=== PATIENT | female | born 1985 ===

== ENCOUNTER → 2019-05-06 11:48 | Day surgery (SDC) | payer OTHER ==
[~2019-05-06 11:48] MED LIST: Buffered Lidocaine 1% SYRIN* 1 ML/SYRINGE INTRADERM ONE; KETAMINE HCL* 50 MG/ML 10 ML VIAL ONE; Lactated Ringers 1000 ML Bag* 1,000 ML IV SCH; Lidocaine 2% PF * 5 ML VIAL ONE; Midazolam* 1 MG/ML 10 ML VIAL (10 MG) ONE; Ondansetron INJ* 2 MG/ML VIAL ONE; Propofol* 10 MG/ML 20 ML BTL ONE; fentaNYL* 50 MCG/ML 2 ML VIAL (100 MCG VIAL) ONE
[2019-05-06 15:34] VITALS: BP 120/92
--- NOTE | 2019-05-06 21:22 | PRO ---
CC: Dr. Toni Lopez * ATE OF PROCEDURE: 05/06/19 - [facility] PHYSICIAN: Dr. Toni Lopez. INDICATION FOR PROCEDURE: Abdominal pain, dysphagia, nausea, vomiting. PROCEDURE PERFORMED: Complete esophagogastroduodenoscopy with biopsies. MEDICATIONS GIVEN: Please see anesthesia record. DESCRIPTION OF PROCEDURE: After the EGD procedure including the risks, benefits , and alternatives with the risks not limited to perforation, surgery, missed lesions, and/or were explained to the patient, written informed consent was obtained, IV medication was given by the anesthesia service, and a bite- block was placed between the teeth. The adult Olympus gastroscope was then inserted into the patient's oropharynx into the tubular esophagus. The tubular esophagus had mild GE junction variability less than 1 cm. This was biopsied. There was also a small plaque-like lesion around 35 cm, it is possible papilloma. This was biopsied. The scope was then advanced to the lower esophageal sphincter into the stomach. Direct views were normal. Biopsy was taken for CLOtesting. On retroflexion, no significant hiatal hernia was appreciated. The scope was advanced to the widely patient pylorus into duodenal bulb, C-loop, distal duodenum. These were normal in appearance. Biopsies were taken to rule out celiac disease. The scope was then removed from the patient. She tolerated the procedure well. She returned to the recovery room in stable condition. After the procedure, I did empirically dilate with a 54-Barbadian Mathias. IMPRESSION: 1. Complete esophagogastroduodenoscopy with biopsies. 2. Mild GE junction variability, biopsied. 3. Plaque at 35 cm, biopsied. 4. Otherwise unremarkable EGD, biopsied as above. 5. Empiric dilatation with 54-Barb[place] Mathias. RECOMMENDATIONS: She will be on 20 mg of omeprazole. We will recommend increasing to a stronger PPI to see if she gets any relief from that. In addition, she does have varying bowel habits and I suspect maybe some of this cramping and abdominal pain could be from constipation alternating with diarrhea. We recommend fiber therapy. She can follow up in the office with Bharati Elaine for further management. In addition, she is going to follow up with her [facility] [employer] [facility] as there is a potential for endometriosis causing some of her symptomatology. [id number]/[facility] #: [id number] [facility]
== END | disposition home or self-care (01) ==
LOC: OR 11:48
PROVIDERS: ATTEND Internal Medicine Gastroenterology
DX: R13.19 Other dysphagia (principal); R10.9 Unspecified abdominal pain; R11.2 Nausea with vomiting, unspecified; K22.2 Esophageal obstruction; I10 Essential (primary) hypertension; K21.9 Gastro-esophageal reflux disease without esophagitis; Z72.0 Tobacco use; F41.9 Anxiety disorder, unspecified
CPT/HCPCS: 81025; 87077; 88305; J2250; J2405; J2704; J3010

== ENCOUNTER 2019-07-18 20:36 | Emergency (ER) | payer OTHER ==
--- OUTSIDE RECORDS SUMMARY | 2019-07-18 21:04 | XMS REPORT | Continuity of Care Document ---
:1985 External Reference #:[id number] Author Name Lev Arroyo DO Address [address] [place] [id number] Care Team Providers Name Role Phone Cathleen Gallegos PA Care Team Information Short Order Cook [phone] Problems Active Problems Provider Date Gastroesophageal reflux disease Bharati Elaine PA-C Onset: 02/14/2019 Melena Bharati Elaine PA-C Onset: 02/14/2019 Generalized abdominal pain Bharati Elaine PA-C Onset: 02/14/2019 Early satiety Bharati Elaine PA-C Onset: 02/14/2019 Hematemesis Bharati Elaine PA-C Onset: 02/14/2019 Nausea and vomiting Bharati Elaine PA-C Onset: 02/14/2019 Dysphagia Bharati Elaine PA-C Onset: 02/14/2019 Social History Type Date Description Comments Sex Unknown Tobacco Use Start: Unknown Light tobacco smoker (10 or fewer cigarettes/day) Recreational Drug Use Regularly uses Marijuana several times per week Smoking Status Reviewed: 02/14/19 Light tobacco smoker (10 or fewer cigarettes/day) Allergies, Adverse Reactions, Alerts Description No Known Drug Allergies Medications Active Medications SIG Qnty Indications Ordering Date Provider Omeprazole 1 tablet by 30caps Lev Arroyo DO 05/24/[address] mouth daily in Am Furosemide Sancho Allen, 20mg Tablets Cyclobenzaprine HCL Take 1 Tablet Unknown 5mg Tablets By Mouth Twice Daily as Needed For 14 Days Prochlorperazine Maleate Take 1 Tablet Unknown 5mg By Mouth Three Tablets Times Daily For 10 Days Alprazolam Unknown 2mg Tablets Heaven Singh, 0.15-0.03&0.01mg MD Tablets Atomoxetine HCL Unknown 40mg Capsules Divalproex Sodium ER Unknown 500mg Tablets ER 24HR Latuda Take 1 Tablet Unknown 20mg Tablets By Mouth Once Daily Quetiapine Fumarate Unknown 50mg Tablets Hydrocodone-Acetaminophen Cathleen Gallegos PA 5-325mg Tablets Immunizations Description No Information Available Vital Signs Date Vital Result Comment 02/14/2019 11:46am Height 66 inches 5'6" Weight 167.00 lb BP Systolic 117 mmHg BP Diastolic 83 mmHg Heart Rate 112 /min BMI (Body Mass Index) 27.0 kg/m2 Results Test Acquired Date Facility Test Result H/L Range Note Laboratory test 05/06/2019 [facility] [facility] [place]ULT 1 finding Pathology Order BELOW Fluid Lipid 01/18/2019 [facility] Fluid <pending> Profile Cholesterol Laboratory test 01/18/2019 [facility] TSH Thyroid Stim <pending> finding Hormone(!) Hemoglobin A1c 01/18/2019 [facility] Hemoglobin A1c <pending> (!) Lipid Panel(!) 01/18/2019 [facility] Cholesterol <pending> Total Mass/Vol(!) HDL Cholesterol Mol/Vol <pending> 30-85 Triglycerides Ser/Plas(!) <pending> LDL Cholesterol Mass/Vol(!) <pending> Laboratory test 01/18/2019 [facility] TSH Thyroid Stim <pending> finding Hormone(!) CBC W/Auto 01/18/2019 [facility] White Blood Count <pending> Differential(!) Ser Auto CNT RBC Red Blood Count <pending> Hemoglobin Blood <pending> Hematocrit <pending> MCV (Corpuscular Volume) <pending> MCH (Corpuscular Hemoglobin) <pending> MCHC (Corpuscular Hemog Conc) <pending> RDW <pending> Platelet Count Blood Auto CNT <pending> MPV <pending> Lymph% <pending> [place]laize% <pending> Neutrophil % <pending> Absolute Lymphocytes <pending> Absolute Monocytes <pending> Absolute Neutrophils <pending> CMP(!) 01/18/2019 [facility] Sodium(!) <pending> Potassium(!) <pending> Chloride Serum/Plasma(!) <pending> Carbon Dioxide Ser/Plasm(!) <pending> BUN - Urea Nitrogen(!) <pending> Calcium Ser/Plasma Mass/Vol(!) <pending> Creatinine Serum Mass/Vol(!) <pending> Glucose Serum(!) <pending> BUN/Creatinine Ratio(!) <pending> Albumin Serum/Plasma(!) <pending> Alkaline Phosphatase(!) <pending> Bilirubin Total Mass/Vol(!) <pending> Ast - Sgot <pending> Alt - SGPT <pending> Protein Total <pending> 1 SEE RESULT BELOW Name: KRISTYN STODDARD : [address]: Lev Arroyo DO Acct: [id number] Unit: [id number] AGE: 34 Location: OR Re05/06/19 SEX: F Status: REG [facility] SPEC: [id number] KOBY: 05/06/19-[address] [facility] [address]: Lev Arroyo DO REQ: [id number] RECD: 05/06/19 STATUS: DENAE HOPPER DR: Toni Lopez DO _ ORDERED: LEVEL 4/4 FINAL DIAGNOSIS 1. Duodenum, biopsy: -- Benign small intestinal mucosa with no significant pathologic abnormalities. -- No evidence of villous blunting or increased intraepithelial lymphocytes. 2. Esophagus, distal, biopsy: -- Benign squamous and columnar-type mucosa with chronic inflammation. -- Intestinal metaplasia is absent. -- Dysplasia is absent. 3. Esophagus, at 35 cm, biopsy: -- Benign squamous mucosa with mild erosive changes. -- No columnar component present for evaluation. -- No evidence of eosinophilic esophagitis. 4. Esophagus, mid, biopsy: -- Benign squamous mucosa with mild erosive changes. -- No evidence of eosinophilic esophagitis. CLINICAL HISTORY Dysphagia CONTINUED ON NEXT PAGE DEPARTMENT OF PATHOLOGY, [address] [place] [address] Richie Richard M.D. Director [facility] # [id number] PRE-OPERATIVE DIAGNOSIS 1) Rule out celiac POST-OPERATIVE DIAGNOSIS EGD: esophagus - plaque at gastroesophageal junction variable biopsy; gastric - normal; biopsy and JEEVAN test; duodenum - normal; biopsy GROSS DESCRIPTION 1. The specimen is received in formalin labeled, Biopsy Duodenum, and consists of two saldivar-pink irregular soft tissue fragments averaging 0.4 x 0.3 x 0.1 cm which are submitted entirely in one cassette. 2. The specimen is received in formalin labeled, Biopsy Distal Esophagus, and consists of a 0.4 x 0.3 x 0.1 cm white-pink irregular soft tissue fragment which is submitted entirely in one cassette. 3. The specimen is received in formalin labeled, Biopsy Plaque at 35 cm, and consists of two white-pink irregular soft tissue fragments averaging 0.4 by up to 0.3 x 0.2 cm which are submitted entirely in one cassette. 4. The specimen is received in formalin labeled, Biopsy Mid Esophagus, and consists of two white-pink irregular soft tissue fragments measuring 0.2 x 0.2 x 0.1 cm and 0.3 x 0.2 x 0.1 cm which are submitted entirely in one cassette. Signed by and Reported on: Andressa Rollins MD 05/09/19 1447 END OF REPORT DEPARTMENT OF PATHOLOGY, [address] [place] [address] Richie Richard M.D. Director [facility] # [id number] Procedures Description No Information Available Medical Devices Description No Information Available Encounters Type Date Location Provider Dx Diagnosis Office Visit 02/14/2019 Gastroenterology Bharati Justin R13.10 Dysphagia, 10:[facility], unspecified PA-C K92.0 Hematemesis R68.81 Early satiety R10.84 Generalized abdominal pain K92.1 Melena K21.9 Gastro-esophageal reflux disease without esophagitis Assessments Date Code Description Provider 02/14/2019 R13.10 Dysphagia, unspecified Bharati Elaine, PA-C 02/14/2019 K92.0 Hematemesis Bharati Elaine, PA-C 02/14/2019 R68.81 Early satiety Bharati Elaine, PA-C 02/14/2019 R10.84 Generalized abdominal pain Bharati Elaine, PA-C 02/14/2019 K92.1 Melena Bharati Elaine, PA-C 02/14/2019 K21.9 Gastro-esophageal reflux disease without Bharati Gandhiom, PA-C esophagitis Plan of Treatment No Information Available Functional Status Description No Information Available Mental Status Description No Information Available Referrals Description No Information Available
[2019-07-18 21:22] LABS: ABS Eosinophils 0.5 10^3/ul (0-0.6); ABS Lymphocytes 1.8 10^3/ul (1.0-4.8); ABS Monocytes 0.8 10^3/ul (0-0.8); Eosinophil % 5.7 %; Hematocrit 36 % (35-47); Hemoglobin 12.3 g/dL (12.0-16.0); Lymphocyte % 22.3 %; Mean Corpuscular HGB Conc 35 g/dL (31-36); Mean Corpuscular Hemoglobin 32 pg (27-31); Mean Corpuscular Volume 91 fL (80-97); Mean Platelet Volume 7.9 fL (7.4-10.4); Platelet Count 270 10^3/uL (150-450); Red Cell Distribution Width 13 % (10-15); White Blood Count 8.1 10^3/uL (3.5-10.8)
[2019-07-18 21:36] LABS: Influenza A Molecular NEGATIVE (Negative); Influenza B Molecular NEGATIVE (Negative)
[2019-07-18 21:37] LABS: INR 0.92 (0.82-1.09)
[2019-07-18 21:38] LABS: Albumin 3.9 g/dL (3.2-5.2); Albumin/Globulin Ratio 1.4 (1-3); BUN/Creatinine Ratio 16.9 (8-20); Calcium 8.6 mg/dL (8.6-10.3); EGFR African American 112.7 (>60); EGFR Non-African American 93.1 (>60); Globulin 2.8 g/dL (2-4); Potassium 3.8 mmol/L (3.5-5.0); Total Bilirubin 0.3 mg/dL (0.2-1.0); Total Protein 6.7 g/dL (6.4-8.9)
[2019-07-19] MEDS ORDERED: Diazepam INJ CARPUJECT* 5 MG/ML IV ONE (00:59)
--- NOTE | 2019-07-19 01:01 | ED ---
HPI Chest Pain - HPI Summary HPI Summary: The patient is a 34 y/o female presenting to [facility] with a chief complaint of palpitations, chest pain, and shortness of breath over the last 4-5 days. She reports that she has a history of similar symptoms with unknown etiology but possibility of endometriosis following an endoscopy with a plan for laparoscopy for confirmation. She states chronic poor circulation, which she relates to the intermittent episodes of extremity edema she has been experiencing and has been persistent over the last week. With the edema, she has noticed palpitations, chest pain, and shortness of breath described as "being uncomfortable" and "not feeling right." She endorses localized pain in the feet and general myalgias and arthralgias described as "beat up like a punching bag." She additionally c/ o increased anxiety recently. Symptoms rated 10/10 in severity. She hasn't seen a sawyer cork slabs for her symptoms, but she has seen GI and her PCP. She is currently on Lasix, and she notes her right lower extremity has been worse with swelling than the left chronically. No autoimmune FHx. Her mother has a history of [place] and aortic stents while smoking 1 ppd. Patient is a current smoker, occasional EtOH, no substance use. No concern for . PMHx: HTN. Medications reviewed. Allergies noted. - History of Current Complaint Chief Complaint: EDChestPainROMI Time Seen by Provider: 07/19/19 00:42 Hx Obtained From: Patient Onset/Duration: Started Days Ago, Still Present Timing: Intermittent Initial Severity: Moderate Current Severity: Severe Pain Intensity: 10 Pain Scale Used: 0-10 Numeric Chest Pain Location: Diffuse Chest Pain Radiates: No Character: Dull/Aching Aggravating Factor(s): Nothing Alleviating Factor(s): Nothing Associated Signs and Symptoms: Positive: Chest Pain, Anxiety, Shortness of Breath, Palpitations, Edema - Allergy/Home Medications Allergies/Adverse Reactions: Allergies Allergy/AdvReac Type Severity Reaction Status Date / Time No Known Allergies Allergy Verified 07/18/19 20:56 PMH/Surg Hx/FS Hx/Imm Hx Endocrine/Hematology History: Denies: Hx Diabetes Cardiovascular History: Reports: Hx Hypertension - STARTING ON METOPOLOL Respiratory History: Denies: Hx Asthma GI History: Reports: Hx Gastroesophageal Reflux Disease Musculoskeletal History: Reports: Other Musculoskeletal History - XRAY OF LOWER BACK Sensory History: Reports: Hx Contacts or Glasses - WILL WEAR GLASSES Denies: Hx Hearing Aid Opthamlomology History: Reports: Hx Contacts or Glasses - WILL WEAR GLASSES Neurological History: Reports: Hx Headaches Psychiatric History: Reports: Hx Anxiety, Hx Depression - Surgical History Surgical History: Yes Surgery Procedure, Year, and Place: ENDOSCOPY 2019 Hx Anesthesia Reactions: No Infectious Disease History: No Infectious Disease History: Denies: Traveled Outside the [place] in Last 30 Days - Family History Known Family History: Positive: Cardiac Disease - mother [place] age 45 - Social History Alcohol Use: Occasionally Hx Substance Use: Yes Substance Use Type: Reports: None Substance Use Comment - Amount & Last Used: THC NOT USED IN A WHILE Hx Tobacco Use: Yes Smoking Status (MU): Light Every Day Tobacco Smoker Amount Used/How Often: 1/2 PPD Have You Smoked in the Last Year: No Review of Systems Positive: Palpitations, Chest Pain Positive: Shortness Of Breath Positive: Arthralgia, Myalgia, Edema - BLE, Other - localized bilateral foot pain Positive: Anxious All Other Systems Reviewed And Are Negative: Yes Physical Exam - Summary Physical Exam Summary: Constitutional: Well-developed, Well-nourished, Alert. (-) Distressed Skin: Warm, Dry HENT: Normocephalic; Atraumatic Eyes: Conjunctiva normal Neck: Musculoskeletal ROM normal neck. (-) JVD, (-) Stridor, (-) Tracheal deviation Cardio: Rhythm regular, tachycardic rate, Heart sounds normal; Intact distal pulses; The pedal pulses are 2+ and symmetric. Radial pulses are 2+ and symmetric. Pulmonary/Chest wall: Effort normal. (-) Respiratory distress, (+) Trace wheezing at end of expiration, (-) Rales, (-) Rhonchi Abd: Soft, (-) tenderness, (-) Distension, (-) Guarding, (-) Rebound Musculoskeletal: (+) Trace swelling of bilateral lower extremities at worst, more in right, (+) Mild right calf tenderness Neuro: Alert, Oriented x3 Psych: Mood and affect Normal Triage Information Reviewed: Yes Vital Signs On Initial Exam: Initial Vitals Temp Pulse Resp BP Pulse Ox 97.9 F 108 18 132/75 97 07/18/19 20:55 07/18/19 20:55 07/18/19 20:55 07/18/19 20:55 07/18/19 20:55 Vital Signs Reviewed: Yes Procedures - Sedation Patient Received Moderate/Deep Sedation with Procedure: No Diagnostics - Vital Signs Vital Signs Temp Pulse Resp BP Pulse Ox 07/19/19 00:47 98.4 F 120 20 145/91 97 07/18/19 23:11 98.4 F 118 20 147/96 98 07/18/19 20:55 97.9 F 108 18 132/75 97 - Laboratory Lab Results: Lab Results 07/18/19 07/18/19 07/18/19 Range/Units 20:52 20:52 20:52 WBC 8.1 (3.5-10.8) 10^3/uL RBC 3.90 (3.70-4.87) 10^6 /uL Hgb 12.3 (12.0-16.0) g/dL Hct 36 (35-47) % MCV 91 (80-97) fL MCH 32 H (27-31) pg MCHC 35 (31-36) g/dL RDW 13 (10-15) % Plt Count 270 (150-450) 10^3/uL MPV 7.9 (7.4-10.4) fL Neut % (Auto) 61.4 % Lymph % (Auto) 22.3 % Buchanan % (Auto) 10.2 % Eos % (Auto) 5.7 % Baso % (Auto) 0.4 % Absolute Neuts (auto) 5.0 (1.5-7.7) 10^3/ul Absolute Lymphs (auto) 1.8 (1.0-4.8) 10^3/ul Absolute Monos (auto) 0.8 (0-0.8) 10^3/ul Absolute Eos (auto) 0.5 (0-0.6) 10^3/ul Absolute Basos (auto) 0.0 (0-0.2) 10^3/ul Absolute Nucleated RBC 0.0 10^3/ul Nucleated RBC % 0.0 INR (Anticoag Therapy) 0.92 (0.82-1.09) Sodium 134 L (135-145) mmol/L Potassium 3.8 (3.5-5.0) mmol/L Chloride 103 (101-111) mmol/L Carbon Dioxide 27 (22-32) mmol/L Anion Gap 4 (2-11) mmol/L BUN 12 (6-24) mg/dL Creatinine 0.71 (0.51-0.95) mg/dL Est GFR ( Amer) 112.7 (>60) Est GFR (Non-Af Amer) 93.1 (>60) BUN/Creatinine Ratio 16.9 (8-20) Glucose 82 (70-100) mg/dL Calcium 8.6 (8.6-10.3) mg/dL Total Bilirubin 0.30 (0.2-1.0) mg/dL AST 14 (13-39) U/L ALT 9 (7-52) U/L Alkaline Phosphatase 40 (34-104) U/L Troponin I 0.00 (<0.03) ng/mL Total Protein 6.7 (6.4-8.9) g/dL Albumin 3.9 (3.2-5.2) g/dL Globulin 2.8 (2-4) g/dL Albumin/Globulin Ratio 1.4 (1-3) Influenza A (Rapid) (Negative) Influenza B (Rapid) (Negative) 07/18/19 Range/Units 21:01 WBC (3.5-10.8) 10^3/uL RBC (3.70-4.87) 10^6 /uL Hgb (12.0-16.0) g/dL Hct (35-47) % MCV (80-97) fL MCH (27-31) pg MCHC (31-36) g/dL RDW (10-15) % Plt Count (150-450) 10^3/uL MPV (7.4-10.4) fL Neut % (Auto) % Lymph % (Auto) % Buchanan % (Auto) % Eos % (Auto) % Baso % (Auto) % Absolute Neuts (auto) (1.5-7.7) 10^3/ul Absolute Lymphs (auto) (1.0-4.8) 10^3/ul Absolute Monos (auto) (0-0.8) 10^3/ul Absolute Eos (auto) (0-0.6) 10^3/ul Absolute Basos (auto) (0-0.2) 10^3/ul Absolute Nucleated RBC 10^3/ul Nucleated RBC % INR (Anticoag Therapy) (0.82-1.09) Sodium (135-145) mmol/L Potassium (3.5-5.0) mmol/L Chloride (101-111) mmol/L Carbon Dioxide (22-32) mmol/L Anion Gap (2-11) mmol/L BUN (6-24) mg/dL Creatinine (0.51-0.95) mg/dL Est GFR ( Amer) (>60) Est GFR (Non-Af Amer) (>60) BUN/Creatinine Ratio (8-20) Glucose (70-100) mg/dL Calcium (8.6-10.3) mg/dL Total Bilirubin (0.2-1.0) mg/dL AST (13-39) U/L ALT (7-52) U/L Alkaline Phosphatase (34-104) U/L Troponin I (<0.03) ng/mL Total Protein (6.4-8.9) g/dL Albumin (3.2-5.2) g/dL Globulin (2-4) g/dL Albumin/Globulin Ratio (1-3) Influenza A (Rapid) Negative (Negative) Influenza B (Rapid) Negative (Negative) Result Diagrams: 07/18/19 20:52 07/18/19 20:52 Lab Statement: Any lab studies that have been ordered have been reviewed, and results considered in the medical decision making process. - CT Chest/Thorax CTA CT Interpretation Completed By: Radiologist Summary of CT Findings: Impression: 1. There is mosaic attenuation in the lungs , possible smaller airways disease. 2. No visible acute pulmonary embolism. 3. No aortic dissection. ED physician has reviewed this report. - EKG 2038 Cardiac Rate: Tachycardia - 113 BPM EKG Rhythm: Sinus Tachycardia Summary of EKG Findings: An EKG at 2038 reveals sinus tachycardia at 113 BPM, borderline QTc, nonspecific T wave abnormalities, No STEMI. ED physician has reviewed and interpreted this EKG. Re-Evaluation - Re-Evaluation First Eval Re-Evaluation Time: 04:15 Change: Improved Comment: She is feeling better, she is safe for d/c Chest Pain Course/Dx - Course Course Of Treatment: Patient is a 34 y/o female presenting with palpitations, chest pain, and shortness of breath worsening over the last 4-5 days, with noted swelling of the lower extremities in the last week despite being on Lasix. Previous similar episodes with unspecified diagnosis. Physical exam reveals trace swelling of bilateral lower extremities at worst more in right, mild right calf tenderness, and trace wheezing on expiration. Patient administered lactated ringers, Benadryl, Ativan, and Valium. Labs reveal no acute abnormalities relating to the patient's cc. Two negative troponins 3+ hours apart. Influenza A and B are negative. An EKG at 2038 reveals sinus tachycardia at 113 BPM, borderline QTc, nonspecific T wave abnormalities, No STEMI. Chest/Thorax CTA impression reveals mosaic attenuation in the lungs, possible smaller airways disease whiteout indication of acute pulmonary embolism or aortic dissection. Her lower extremities seemingly do not appear edematous, there is no fluid buildup. Negative troponins. There is no evidence of heart strain indicating CHF. Her symptoms are possibly related to anxiety. She is safe for discharge. Patient agreeable with plan. - Diagnoses Provider Diagnoses: Chest pain Discharge ED - Sign-Out/Discharge Documenting (check all that apply): Patient Departure - Patient will be discharged home. - Discharge Plan Condition: Stable Disposition: HOME Patient Education Materials: Chest Pain (DC) Referrals: Toni Lopez, [Primary Care Provider] - 3 Days Additional Instructions: Follow up with your primary care provider in 2-3 days. Return to the emergency department for any new or worsening symptoms. - Attestation Statements Document Initiated by Leonie: Yes Documenting Scribe: Elle Barker Provider For Whom Leonie is Documenting (Include Credential): Dr. Larry Kim MD Scribe Attestation: Elle Dalton scribed for Dr. Larry Kim MD on 07/21/19 at 1736. Status of Scribe Document: Ready
[2019-07-19] MEDS ORDERED: Iohexol 350* (CONTRAST) 500 ML MDV IV ONE (01:12)
[2019-07-19] MEDS ORDERED: Lactated Ringers 1000 ML Bag* 1,000 ML IV ONE (03:03)
[2019-07-19] MEDS ORDERED: LORazepam TAB(*) 1 MG PO ONE (03:04)
[2019-07-19 04:49] VITALS: BP 105/65
== END 2019-07-19 04:48 | disposition home or self-care (01) ==
LOC: ED 20:36
DX: R07.9 Chest pain, unspecified (principal); I10 Essential (primary) hypertension; K21.9 Gastro-esophageal reflux disease without esophagitis; F32.9 Major depressive disorder, single episode, unspecified; F17.200 Nicotine dependence, unspecified, uncomplicated; Z79.899 Other long term (current) drug therapy
CPT/HCPCS: 36415; 71275; 80053; 83880; 84484; 85025; 85610; 93005; 96361; 96374; 99284; A9270-GY; J3360; Q9967